=== PATIENT | female | born 1970 | race Caucasian/White ===

== ENCOUNTER 2017-05-18 16:15 | Emergency (ER) | payer OTHER ==
[~2017-05-18] VITALS: Ht 160 cm; Wt 60.0 kg
[~2017-05-18 16:15] MED LIST: NAPR500 PO
[2017-05-18 16:24] VITALS: BP 125/87; PULSE 69; RESP 16; TEMP 98.4; O2SAT 100
[2017-05-18 17:21] VITALS: BP 128/84; PULSE 73; RESP 17; O2SAT 99
--- NOTE | 2017-05-18 18:07 | PD ---
HPI Chief Complaint: Abdominal Pain Time Seen by Provider: 18:06 Travel History International Travel<30 days: No Contact w/Intl Traveler<30days: No Traveled to known affect area: No History of Present Illness HPI 46-year-old female presents emergency department with history of left lower thoracic/upper abdomen pain which is been ongoing for approximately 2 weeks. There is no specific injury. 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 She states it comes and goes and sometimes sharp. She denies fever, chills, nausea, vomiting, urinary symptoms, diarrhea. Patient said intermittent pain in this area for years, but in the last 2 weeks it is worsened. She feels the area is somewhat swollen. She does not have shortness of breath. She has not tried taking any medication for it. She has no known drug allergies. PFSH Past Medical History Medical History: Denies Significant Hx Tetanus Vaccination: Unknown Influenza Vaccination: No ?: Not Menopausal: Yes Past Surgical History Surgical History: No Previous Surgery Social History Alcohol Use: No Tobacco Use: Yes (/2 PPD) Substance Use: No Allergies-Medications (Allergen,Severity, Reaction): Coded Allergies: No Known Allergies (Unverified , 05/18/17) Reported Meds & Prescriptions Reported Meds & Active Scripts Active No Active Prescriptions or Reported Medications Review of Systems Except as stated in HPI: all other systems reviewed are Neg General / Constitutional: No: Fever Eyes: No: Visual changes HENT: No: Headaches Cardiovascular: Positive: Chest Pain or Discomfort (See history of present illness), No: Palpitations, Irregular Rhythm, Tachycardia, Diaphoresis, Syncope , Dyspnea on exertion, Edema, Varicosities, Claudication Respiratory: Positive: Pleuritic Pain (With deep breath in the left lower anterior thoracic region.), No: Cough, Shortness of Breath, Wheezing, Sneezing Gastrointestinal: No: Abdominal Pain Genitourinary: No: Dysuria Musculoskeletal: No: Pain Skin: No Rash Neurologic: No: Weakness Psychiatric: No: Depression Endocrine: No: Polydipsia Hematologic/Lymphatic: No: Easy Bruising Physical Exam Narrative GENERAL: Patient appears in no obvious distress per SKIN: Warm and dry. Normal color. Normal turgor. No rash. HEAD: Atraumatic. Normocephalic. EYES: Pupils equal and round. No scleral icterus. No injection or drainage. ENT: No nasal bleeding or discharge. Mucous membranes pink and moist. NECK: Trachea midline. Supple and nontender. CARDIOVASCULAR: Regular rate and rhythm. No murmurs gallops or rubs per RESPIRATORY: No accessory muscle use. Clear to auscultation. Breath sounds equal bilaterally. Patient has tenderness along the left lower anterior thoracic wall consistent with probable costochondritis. GASTROINTESTINAL: Abdomen soft, mild to moderate diffuse right upper quadrant tenderness, nondistended. Hepatic and splenic margins not palpable. MUSCULOSKELETAL: Extremities without clubbing, cyanosis, or edema. No obvious deformities. NEUROLOGICAL: Awake and alert. No obvious cranial nerve deficits. Motor grossly within normal limits. Five out of 5 muscle strength in the arms and legs. Normal speech. PSYCHIATRIC: Appropriate mood and affect; insight and judgment normal. Data Data Last Documented VS Vital Signs Date Time Temp Pulse Resp B/P (MAP) Pulse Ox O2 Delivery O2 Flow Rate FiO2 05/18/17 18:36 100 Room Air 05/18/17 17:21 73 17 05/18/17 16:24 98.4 Orders Orders Complete Blood Count With Diff (05/18/17 18:23) Comprehensive Metabolic Panel (05/18/17 18:23) Lipase (05/18/17 18:23) Urinalysis - C+S If Indicated (05/18/17 18:23) Iv Access Insert/Monitor (05/18/17 18:23) Ecg Monitoring (05/18/17 18:23) Oximetry (05/18/17 18:23) Sodium Chloride 0.9% Flush (Ns Flush) (05/18/17 18:30) Chest, Single Ap (05/18/17 18:23) Ketorolac Inj (Toradol Inj) (05/18/17 18:30) Ct Abd/Pel W Iv Contrast(Rout) (05/18/17 18:35) Abdomen, Flat & Upright (05/18/17 18:48) Labs Laboratory Tests Test 05/18/17 18:30 [facility] Medical Decision Making Medical Screen Exam Complete: Yes Emergency Medical Condition: Yes Differential Diagnosis Costochondritis. Rib pain. Pneumonia. Muscle skeletal pain. Possible inflamed spleen. Renal issue. Narrative Course Patient is medically stable at time of exam. IV access is obtained the patient was given 30 mg Toradol IV as well as 4 mg Zofran IV. Chest x-ray is ordered. Abdominal KUB and upright is ordered. Labs ordered including CBC, CMP, urinalysis as well as lipase. CT of the abdomen and pelvis is ordered with IV contrast. 1900 hrs., change of shift, care of the patient is turned over to Dennis Cortes PA-C who will determine the final disposition of the patient. Scripts No Active Prescriptions or Reported Meds Condition: Stable Joe Campa May 18, 2017 18:07
[2017-05-18] MEDS ORDERED: KETOROLAC TROMETHAMINE 30 MG/ML (IVP) VIAL IVP ONE (18:30)
[2017-05-18] MEDS ORDERED: SODIUM CHLORIDE 0.9% FLUSH 10 ML FLUSH IV FLUSH PRN (18:30)
[2017-05-18 18:36] VITALS: O2SAT 100
[2017-05-18 19:09] LABS: AUTOMATED NEUTROPHIL # 3.2 TH/MM3 (1.8-7.7); BASOPHIL # 0.1 TH/MM3 (0-0.2); BASOPHIL % 0.8 % (0.0-2.0); EOSINOPHIL % 0.5 % (0.0-4.0); HEMATOCRIT 45.4 % (35.0-46.0); HEMOGLOBIN 15.2 GM/DL (11.6-15.3); LYMPHOCYTE # 2.8 TH/MM3 (1.0-4.8); MEAN CELL VOLUME 93.4 FL (80.0-100.0); MEAN CORPUSCULAR HEMOGLOBIN 31.4 PG (27.0-34.0); MEAN CORPUSCULAR HGB CONC 33.6 % (32.0-36.0); MONO % 6.1 % (0.0-8.0); MONOCYTE # 0.4 TH/MM3 (0-0.9); NEUT % 49.6 % (16.0-70.0); PLATELET COUNT 256 TH/MM3 (150-450); RED BLOOD COUNT 4.86 MIL/MM3 (4.00-5.30); RED CELL DISTRIBUTION WIDTH 14.8 % (11.6-17.2); WHITE BLOOD COUNT 6.5 TH/MM3 (4.0-11.0)
--- NOTE | 2017-05-18 19:11 | RADRPT ---
EXAM DATE/TIME: 05/18/2017 18:39 [facility] COMPARISON: No previous studies available for comparison. INDICATIONS : Chest discomfort, abdominal pain for 1 week MEDICAL HISTORY : None. SURGICAL HISTORY : None. ENCOUNTER: Initial ACUITY: 1 week PAIN SCORE: 0/10 LOCATION: Bilateral chest FINDINGS: A single view of the chest demonstrates the lungs to be symmetrically aerated without evidence of mas s, infiltrate or effusion. The cardiomediastinal contours are unremarkable. There is a dextrocurvatu re of the thoracic spine. CONCLUSION: No acute disease. Levi Beasley MD on May 18, 2017 at 19:09 Board Certified Radiologist. This report was verified electronically.
--- NOTE | 2017-05-18 19:12 | RADRPT ---
EXAM DATE/TIME: 05/18/2017 18:40 [facility] COMPARISON: No previous studies available for comparison. INDICATIONS : Abdominal pain for 1 week MEDICAL HISTORY : None. SURGICAL HISTORY : None. ENCOUNTER: Initial ACUITY: 1 week PAIN SCORE: 10/10 LOCATION: Left upper quadrant FINDINGS: Supine and upright views of the abdomen were performed. The abdominal bowel gas pattern is normal. No air fluid levels are seen. No abnormal masses, calcifications, or organomegaly is seen. The visu alized lower lungs are clear. No evidence of free intraperitoneal gas. The osseous structures are u nremarkable. There is a dextrocurvature of the thoracic spine. CONCLUSION: No acute disease. Levi Beasley MD on May 18, 2017 at 19:09 Board Certified Radiologist. This report was verified electronically.
[2017-05-18 19:13] LABS: BILIRUBIN, URINE NEG (NEG); BLOOD, URINE NEG (NEG); GLUCOSE,URINE NEG (NEG); KETONE, URINE NEG (NEG); MUCUS URINE FEW /lpf (OCC); NITRITE,URINE NEG (NEG); URINE COLOR LIGHT-YELLOW (YELLW/STRAW); URINE LEUKOCYTE ESTERASE NEG (NEG)
[2017-05-18 19:15] VITALS: BP 132/83; PULSE 63; RESP 16; O2SAT 100
--- NOTE | 2017-05-18 19:22 | PD ---
Data Data Last Documented VS Vital Signs Date Time Temp Pulse Resp B/P (MAP) Pulse Ox O2 Delivery O2 Flow Rate FiO2 05/18/17 19:15 63 16 132/83 (99) 100 Room Air 05/18/17 16:24 98.4 Orders Orders Complete Blood Count With Diff (05/18/17 18:23) Comprehensive Metabolic Panel (05/18/17 18:23) Lipase (05/18/17 18:23) Urinalysis - C+S If Indicated (05/18/17 18:23) Iv Access Insert/Monitor (05/18/17 18:23) Ecg Monitoring (05/18/17 18:23) Oximetry (05/18/17 18:23) Sodium Chloride 0.9% Flush (Ns Flush) (05/18/17 18:30) Chest, Single Ap (05/18/17 18:23) Ketorolac Inj (Toradol Inj) (05/18/17 18:30) Ct Abd/Pel W Iv Contrast(Rout) (05/18/17 18:35) Abdomen, Flat & Upright (05/18/17 18:48) Ed Urine Pregnancytest Poc (05/18/17 19:35) Iohexol 350 Inj (Omnipaque 350 Inj) (05/18/17 19:40) Diphenhydramine Inj (Benadryl Inj) (05/18/17 20:00) Labs Laboratory Tests Test 05/18/17 18:30 White Blood Count 6.5 TH/MM3 Red Blood Count 4.86 MIL/MM3 Hemoglobin 15.2 GM/DL Hematocrit 45.4 % Mean Corpuscular Volume 93.4 FL Mean Corpuscular Hemoglobin 31.4 PG Mean Corpuscular Hemoglobin Concent 33.6 % Red Cell Distribution Width 14.8 % Platelet Count 256 TH/MM3 Mean Platelet Volume 9.0 FL Neutrophils (%) (Auto) 49.6 % Lymphocytes (%) (Auto) 43.0 % Monocytes (%) (Auto) 6.1 % Eosinophils (%) (Auto) 0.5 % Basophils (%) (Auto) 0.8 % Neutrophils # (Auto) 3.2 TH/MM3 Lymphocytes # (Auto) 2.8 TH/MM3 Monocytes # (Auto) 0.4 TH/MM3 Eosinophils # (Auto) 0.0 TH/MM3 Basophils # (Auto) 0.1 TH/MM3 CBC Comment DIFF FINAL Differential Comment Urine Color LIGHT-YELLOW Urine Turbidity CLEAR Urine pH 5.0 Urine Specific Dwight 1.016 Urine Protein NEG mg/dL Urine Glucose (UA) NEG mg/dL Urine Ketones NEG mg/dL Urine Occult Blood NEG Urine Nitrite NEG Urine Bilirubin NEG Urine Urobilinogen LESS THAN 2.0 MG/DL Urine Leukocyte Esterase NEG Urine RBC 1 /hpf Urine Mucus FEW /lpf Microscopic Urinalysis Comment CULT NOT INDICATED Blood Urea Nitrogen 13 MG/DL Creatinine 0.64 MG/DL Random Glucose 97 MG/DL Total Protein 8.3 GM/DL Albumin 4.4 GM/DL Calcium Level 9.8 MG/DL Alkaline Phosphatase 130 U/L Aspartate Amino Transf (AST/SGOT) 21 U/L Alanine Aminotransferase (ALT/SGPT) 23 U/L Total Bilirubin 0.4 MG/DL Sodium Level 138 MEQ/L Potassium Level 4.3 MEQ/L Chloride Level 103 MEQ/L Carbon Dioxide Level 28.4 MEQ/L Anion Gap 7 MEQ/L Estimat Glomerular Filtration Rate 99 ML/MIN Lipase 117 U/L [facility] Medical Record Reviewed: Yes Supervised Visit with MELLO: No Narrative Course See previous providers notes for complete history of present illness. I assumed care pending lab work and imaging studies. 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 Currently she has no pain however. On examination the pain is mildly reproduced with palpation of the lower anterior rib cage and left upper quadrant. There is no tenderness to palpation the right upper quadrant or epigastrium. There is no rash. She appears quite comfortable on initial examination. Her lab work is unremarkable. CT abdomen and pelvis reveals a 1.7 cm right ovarian cyst but no other abnormalities. The patient's pain certainly seems musculoskeletal on examination. Plan is to discharge her with a Lidoderm patch. Recommended follow-up in 1-2 weeks with primary care physician for recheck. Stable for discharge. Diagnosis Primary Impression: Chest wall pain Additional Impression: Abdominal pain Additional Instruction: Please provide the patient a copy of all lab work and imaging studies upon discharge. Medication as needed. Take [id number] Tylenol Motrin as needed for pain. Follow-up in 1-2 weeks with primary care physician. Return for any emergent medical conditions. Med/Other Pt SpecificInfo: Prescription(s) given Scripts Lidocaine Patch 12 HR (Lidocaine Patch 12 HR) 5 % Patch 1 PATCH TOPICAL DAILY Y for PAIN, #1 BOX 0 Refills Remove patch after 12 hours Prov: Linda Fleming DO 05/18/17 Disposition: 01 DISCHARGE HOME Condition: Stable Dennis Cortes May 18, 2017 19:22
[2017-05-18 19:33] LABS: ALBUMIN 4.4 GM/DL (3.4-5.0); ALT (GPT) 23 U/L (10-53); AST (GOT) 21 U/L (15-37); BICARBONATE 28.4 MEQ/L (21.0-32.0); BLOOD UREA NITROGEN 13 MG/DL (7-18); CALCIUM 9.8 MG/DL (8.5-10.1); CHLORIDE 103 MEQ/L (98-107); CREATININE 0.64 MG/DL (0.50-1.00); GLOMERULAR FILTRATION RATE 99 ML/MIN (>89); GLUCOSE,RANDOM 97 MG/DL (74-106); SODIUM (NA) 138 MEQ/L (136-145)
[2017-05-18 19:35] LABS: ALKALINE PHOSPHATASE 130 U/L (45-117); TOTAL BILIRUBIN ADULT 0.4 MG/DL (0.2-1.0); TOTAL PROTEIN 8.3 GM/DL (6.4-8.2)
[2017-05-18] MEDS ORDERED: IOHEXOL 350 MG/ML 10 ML VIAL (for RAD DIAG) IVCONTRAST ONE (19:40)
[2017-05-18] MEDS ORDERED: diphenhydrAMINE HCL 50 MG/ML VIAL IV PUSH ONE (20:00)
--- NOTE | 2017-05-18 20:46 | RADRPT ---
EXAM DATE/TIME: 05/18/2017 19:34 [facility] COMPARISON: No previous studies available for comparison. INDICATIONS : Left lower quadrant abdomen pain. IV CONTRAST: 100 cc Omnipaque 350 (iohexol) IV ORAL CONTRAST: No oral contrast ingested. RADIATION DOSE: 6.64 CTDIvol (mGy) MEDICAL HISTORY : None SURGICAL HISTORY : None. ENCOUNTER: Initial ACUITY: 1 day PAIN SCALE: 5/10 LOCATION: Left lower quadrant abdomen TECHNIQUE: Volumetric scanning of the abdomen and pelvis was performed. Using automated exposure control and ad justment of the mA and/or kV according to patient size, radiation dose was kept as low as reasonably achievable to obtain optimal diagnostic quality images. DICOM format image data is available electro nically for review and comparison. FINDINGS: LOWER LUNGS: The visualized lower lungs are clear. LIVER: Homogeneous density without lesion. There is no dilation of the biliary tree. No calcified gallston es. SPLEEN: Normal size without lesion. PANCREAS: Within normal limits. KIDNEYS: Normal in size and shape. There is no stone or hydronephrosis. There is a 0.8 cm right inferior late ral cyst. ADRENAL GLANDS: Within normal limits. VASCULAR: There is no aortic aneurysm. BOWEL/MESENTERY: The stomach, small bowel, and colon demonstrate no acute abnormality. There is no free intraperitone al air or fluid. The appendix is normal. ABDOMINAL WALL: Within normal limits. RETROPERITONEUM: There is no lymphadenopathy. BLADDER: No wall thickening or mass. REPRODUCTIVE: There is a 1.7 cm cyst at the right adnexa. INGUINAL: There is no lymphadenopathy or hernia. MUSCULOSKELETAL: Within normal limits for patient age. CONCLUSION: 1. The cause of the patient's left lower quadrant pain is not seen. 2. 1.7 cm right ovarian cyst.. Levi Beasley MD on May 18, 2017 at 20:40 Board Certified Radiologist. This report was verified electronically.
[2017-05-18] MEDS ORDERED: LIDO1PAD52 TOPICAL (20:58)
== END 2017-05-18 21:29 | disposition home or self-care (01) ==
LOC: NEPD 16:15 → MERGE 16:15 → NEPD 21:29
DX: R07.89 Other chest pain (principal); F17.200 Nicotine dependence, unspecified, uncomplicated
CPT/HCPCS: 71045; 74019; 74177; 80053; 81001; 83690; 84703; 85025; 96374; 96375; 99285; J1200; J1885; Q9967